=== PATIENT | male | born 1955 | race Caucasian/White ===

== ENCOUNTER → 2017-04-21 | Outpatient (CLI) | payer OTHER ==
[~2017-04-21] MED LIST: KEFLEX 500MG.500 MG PO; LISINOPRIL/HCTZ1 TA3 PO; LORTAB 5/500 501 TAB PO; ROBAXIN-750750 MG PO
[2017-04-21 15:49] LABS: LYMPH # 1.5 K/mm3 (0.7-4.5); LYMPH % 15.7 % (10-50)
[2017-04-21 17:39] LABS: BUN 31 mg/dL (7-18)
[2017-04-21 18:09] LABS: GFR (ESTIMATED) 34 ML/MIN (>60)
[2017-04-21 18:30] LABS: HEMOGLOBIN 18.5 g/dL (14.1-18.0)
[2017-04-23 08:42] LABS: PSA, Free 0.33 ng/mL; Prostate Specific Ag 0.7 ng/mL (0.0-4.0)
[2017-04-23 09:37] LABS: HBsAg Screen Negative (Negative); Hep A Ab, IgM Negative (Negative); Hep B Core Ab, IgM Negative (Negative); Hep C Virus Ab <0.1 (0.0-0.9)
== END ==
LOC: LAB 15:25
PROVIDERS: Emergency Medicine
DX: Z72.0 Tobacco use (principal)